=== PATIENT | male | born 1980 | race Hispanic/Latino ===

== ENCOUNTER 2023-04-22 14:06 | Emergency (ER) | payer OTHER ==
[2023-04-22] MEDS ORDERED: NA CHLORIDE 0.9% 1,000 ML ONE (14:34)
[2023-04-22] MEDS ORDERED: NA CHLORIDE 0.9% 500 ML ONE (14:34)
[2023-04-22] MEDS ORDERED: DIAZEPAM 5 MG TABLET ONE (14:55)
[2023-04-22] MEDS ORDERED: dexAMETHasone 10 MG/ML VIAL ONE (14:56)
[2023-04-22] MEDS ORDERED: ONDANSETRON 4 MG/2 ML VIAL ONE (14:56)
[2023-04-22] MEDS ORDERED: KETOROLAC 30 MG/ML INJ ONE (14:56)
[2023-04-22] MEDS ORDERED: FENTANYL CITR 100 MCG/2 ML ONE (14:56)
[2023-04-22 15:02] LABS: Protime INR 1.08
[2023-04-22 15:05] LABS: Absolute Lymphocytes (CBC) 1.5 K/uL (0.7-4.9); Lymphocytes % 34.8 % (15.3-44.8); MCV 85.6 fL (80-100); RBC Red Blood Cell Count 4.79 M/uL (4.33-5.43)
[2023-04-22 15:07] LABS: Specific Gravity 1.008 (1.005-1.030); Urine Bilirubin NEGATIVE (Negative); Urine Blood Negative (Negative); Urine Clarity Clear (Clear); Urine Color Colorless (Yellow); Urine Glucose NEGATIVE (Negative); Urine Protein NEGATIVE (Negative); Urine Urobilinogen Normal (Normal); Urine pH 6.5 (5.0-7.0)
[2023-04-22 15:18] LABS: Albumin 3.9 g/dL (3.4-5.0); Bilirubin Direct 0.1 mg/dL (0-0.2); Bilirubin Indirect, Calculated 0.4 mg/dL (0.2-0.8); Bilirubin Total 0.5 mg/dL (0.2-1.0); Potassium 4.3 mEq/L (3.5-5.1); Protein, Total 7.6 g/dL (6.4-8.2); Troponin High Sensitivity 10.5 pg/mL (<58.9)
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
--- NOTE | 2023-04-22 15:53 | EDPHYS ---
Physician Documentation [facility] Name: Vlad Shi Age: 42 yrs Sex: Male : 1980 Arrival Date: 04/22/2023 Time: 14:06 Bed 8 Private MD: ED Physician Gustavo Ro HPI: 04/22 15:43 This 42 yrs old Male presents to ER via EMS with complaints of Back Pain. milagros 15:43 The patient presents with pain that is acute, that is chronic. The symptoms are located milagros in the low back, lumbar area, left low back and right low back. Onset: The symptoms/episode began/occurred 2 day(s) ago. The pain does not radiate. Associated signs and symptoms: The patient has no apparent associated signs or symptoms. The problem was sustained playing sports, basketball. Modifying factors: The patient symptoms are alleviated by nothing, the patient symptoms are aggravated by any movement. Severity of symptoms: At their worst the symptoms were mild, moderate, in the emergency department the symptoms are unchanged. The patient has experienced similar episodes in the past, multiple times. Historical: - Allergies: 14:19 No Known Allergies; kc6 - Home Meds: 14:19 None [Active]; kc6 - PMHx: 14:19 None; kc6 - PSHx: 14:19 None; kc6 - Immunization history:: Client reports having NOT received the Covid vaccine. Flu vaccine is not up to date. - Social history:: Smoking status: Patient denies any tobacco usage or history of. - Family history:: not pertinent. ROS: 15:43 Constitutional: Negative for fever, chills, and weight loss, Eyes: Negative for injury, milagros pain, redness, and discharge, ENT: Negative for injury, pain, and discharge, Neck: Negative for injury, pain, and swelling, Cardiovascular: Negative for chest pain, palpitations, and edema, Respiratory: Negative for shortness of breath, cough, wheezing, and pleuritic chest pain, Abdomen/GI: Negative for abdominal pain, nausea, vomiting, diarrhea, and constipation, : Negative for injury, bleeding, discharge, and swelling, MS/Extremity: Negative for injury and deformity, Skin: Negative for injury, rash, and discoloration, Neuro: Negative for headache, weakness, numbness, tingling, and seizure, Psych: Negative for depression, anxiety, suicide ideation, homicidal ideation, and hallucinations, Allergy/Immunology: Negative for hives, rash, and allergies, Endocrine: Negative for neck swelling, polydipsia, polyuria, polyphagia, and marked weight changes. 15:43 Back: Positive for decreased range of motion, pain at rest, pain with movement, of the lumbar area, low back area and left low back. Exam: 15:43 Constitutional: This is a well developed, well nourished patient who is awake, alert, milagros and in no acute distress. Head/Face: Normocephalic, atraumatic. Eyes: Pupils equal round and reactive to light, extra-ocular motions intact. Lids and lashes normal. Conjunctiva and sclera are non-icteric and not injected. Cornea within normal limits. Periorbital areas with no swelling, redness, or edema. ENT: Nares patent. No nasal discharge, no septal abnormalities noted. Tympanic membranes are normal and external auditory canals are clear. Oropharynx with no redness, swelling, or masses, exudates, or evidence of obstruction, uvula midline. Mucous membranes moist. Neck: Trachea midline, no thyromegaly or masses palpated, and no cervical lymphadenopathy. Supple, full range of motion without nuchal rigidity, or vertebral point tenderness. No Meningismus. Chest/axilla: Normal chest wall appearance and motion. Nontender with no deformity. No lesions are appreciated. Cardiovascular: Regular rate and rhythm with a normal S1 and S2. No gallops, murmurs, or rubs. Normal PMI, no JVD. No pulse deficits. Respiratory: Lungs have equal breath sounds bilaterally, clear to auscultation and percussion. No rales, rhonchi or wheezes noted. No increased work of breathing, no retractions or nasal flaring. Abdomen/GI: Soft, non-tender, with normal bowel sounds. No distension or tympany. No guarding or rebound. No evidence of tenderness throughout. Male : Normal genitalia with no discharge or lesions. Skin: Warm, dry with normal turgor. Normal color with no rashes, no lesions, and no evidence of cellulitis. MS/ Extremity: Pulses equal, no cyanosis. Neurovascular intact. Full, normal range of motion. Neuro: Awake and alert, GCS 15, oriented to person, place, time, and situation. Cranial nerves II-XII grossly intact. Motor strength 5/5 in all extremities. Sensory grossly intact. Cerebellar exam normal. Normal gait. Psych: Awake, alert, with orientation to person, place and time. Behavior, mood, and affect are within normal limits. 15:43 Back: pain, that is mild, that is moderate, ROM is painful, with flexion, with extension, normal spinal alignment noted, CVA tenderness, is absent, vertebral tenderness, is not appreciated, muscle spasm, is appreciated in the left low back, left mid back, right mid back and right low back. 16:35 Abdomen/GI: Inspection: abdomen appears normal, Bowel sounds: normal, Palpation: [facility] abdomen is soft and non-tender, Liver: no appreciated palpable abnormalities, Hernia: not appreciated. 16:44 ECG was reviewed by the Attending Physician. [facility] Vital Signs: 14:14 BP 140 / 86; Pulse 68; Resp 18 S; Temp 98.1(O); Pulse Ox 100% on R/A; Weight 76.2 kg kc6 (R); Height 6 ft. 0 in. (R); Pain 10/10; 15:39 BP 126 / 76; Pulse 45; Resp 18 S; Pulse Ox 100% on R/A; Pain 3/10; kc6 14:14 Body Mass Index 22.78 (76.20 kg, 182.88 cm) kc6 14:14 Pain Scale: Adult kc6 15:39 Pain Scale: Adult kc6 MDM: 14:19 Patient medically screened. [facility] 15:45 Differential diagnosis: chronic back pain, Fatigue Fracture Osteoarthritis sprain, milagros vertebral fracture. Data reviewed: vital signs, nurses notes, lab test result(s), radiologic studies, CT scan. Consideration of Admission/Observation Escalation of care including admission/observation considered. I considered the following discharge prescriptions or medication management in the emergency department Medications were administered in the Emergency Department. See MAR. Independent interpretation of the following test(s) in the Emergency Department CT Scan: My interpretation is CT LUMBAR. 04/22 14:20 Order name: Basic Metabolic Panel; Complete Time: 15:37 [facility] 04/22 14:20 Order name: CBC with Diff; Complete Time: 15:37 [facility] 04/22 14:20 Order name: LFT's; Complete Time: 15:37 [facility] 04/22 14:20 Order name: Magnesium; Complete Time: 15:37 04/22 14:20 Order name: NT PRO-BNP; Complete Time: 15:37 04/22 14:20 Order name: PT-INR; Complete Time: 15:37 [facility] 04/22 14:20 Order name: Troponin HS; Complete Time: 15:37 [facility] 04/22 14:20 Order name: Lipase; Complete Time: 15:37 04/22 14:20 Order name: CK; Complete Time: 15:37 04/22 14:20 Order name: Urinalysis w/ reflexes 04/22 14:20 Order name: XRAY Chest (1 view) 04/22 14:44 Order name: CT Lumbar Spine Wo Con; Complete Time: 16:35 [facility] 04/22 14:20 Order name: EKG; Complete Time: 14:21 [facility] 04/22 14:20 Order name: Cardiac monitoring; Complete Time: 14:25 [facility] 04/22 14:20 Order name: EKG - Nurse/Tech; Complete Time: 14:42 04/22 14:20 Order name: IV Saline Lock; Complete Time: 14:42 04/22 14:20 Order name: Labs collected and sent; Complete Time: 14:42 04/22 14:20 Order name: O2 Per Protocol; Complete Time: 14:25 04/22 14:20 Order name: O2 Sat Monitoring; Complete Time: 14:25 04/22 16:16 Order name: Misc. Order: DC WHEN OFFICAL CT LUMBAR NEG; Complete Time: 16:31 milagros EC:44 Rate is 44 beats/min. Rhythm is regular. QRS Adel is Normal. ME interval is normal. QRS milagros interval is normal. QT interval is normal. No Q waves. T waves are Normal. Clinical impression: Brugada syndrome, Sinus bradycardia, and No evidence of ischemia. Interpreted by me. Reviewed by me. Administered Medications: 14:42 Drug: NS 0.9% IV 500 ml Route: IV; Rate: bolus; Site: left antecubital; kc6 15:39 Follow up: Response: No adverse reaction; IV Status: Completed infusion; IV Intake: kc6 500ml 14:42 Drug: NS 0.9% IV 1000 ml Route: IV; Rate: 125 ml/hr; Site: left antecubital; kc6 17:02 Follow up: Response: No adverse reaction; IV Status: Order to discontinue infusion kc6 14:55 Drug: Decadron - Dexamethasone IVP 10 mg Route: IVP; Site: left antecubital; kc6 15:39 Follow up: Response: No adverse reaction kc6 14:55 Drug: fentaNYL (PF) IVP 50 mcg Route: IVP; Site: left antecubital; kc6 15:39 Follow up: Response: No adverse reaction; Pain is decreased; RASS: Alert and Calm (0) kc6 14:56 Drug: Ondansetron IVP 4 mg Route: IVP; Site: left antecubital; kc6 15:40 Follow up: Response: No adverse reaction kc6 14:56 Drug: Ketorolac IVP 30 mg Route: IVP; Site: left antecubital; kc6 15:40 Follow up: Response: No adverse reaction; Pain is decreased kc6 14:56 Drug: Diazepam PO 10 mg Route: PO; kc6 15:40 Follow up: Response: No adverse reaction; Pain is decreased; Anxiety decreased; RASS: [facility] Alert and Calm (0) Disposition Summary: 04/22/23 15:53 Discharge Ordered Location: Home milagros Problem: new milagros Symptoms: have improved milagros Condition: Stable milagros Diagnosis - Low back pain milagros - Other injury of muscle, fascia and tendon of lower back milagros Followup: milagros - With: Private Physician - When: 2 - 3 days - Reason: Recheck today's complaints, Continuance of care, Re-evaluation by your physician Discharge Instructions: - Discharge Summary Sheet milagros - Acute Back Pain, Adult milagros - Musculoskeletal Pain milagros Forms: - Medication Reconciliation Form [facility] - Thank You Letter milagros - Antibiotic Education milagros - Prescription Opioid Use milagros Prescriptions: - Ibuprofen 600 mg Oral Tablet - take 1 tablet by ORAL route every 6 hours As needed take with food; 30 tablet; [facility] Refills: 0, Product Selection Permitted - Cyclobenzaprine 5 mg Oral Tablet - take 1 tablet by ORAL route 3 times per day As needed; 15 tablet; Refills: 0, milagros Product Selection Permitted Signatures: Dispatcher [employer] Gustavo Nova MD MD cha Campbell, Kaitlyn RN RN kc6
--- NOTE | 2023-04-22 16:31 | RAD REPORT ---
EXAM DESCRIPTION: CT - Spine Lumbar Wo Con - 04/22/2023 3:13 pm CLINICAL HISTORY: PAIN COMPARISON: No comparisons TECHNIQUE: Axial noncontrast CT imaging of the lumbar spine was performed with coronal and sagittal re-formatted images. All CT scans are performed using dose optimization technique as appropriate and may include automated exposure control or mA/KV adjustment according to patient size. FINDINGS: No acute lumbar spine fracture seen. No aggressive marrow pattern or malalignment. Paraspinal tissues are normal in thickness. No paraspinal abscess or hematoma seen. No significant degenerative changes. Incidentally noted trace free pelvic fluid. Intervertebral disc disease assessment is inherently limited by CT. Within these limitations, no high -grade canal stenosis suspected. IMPRESSION: No acute osseous abnormality of the lumbar spine. If there is concern for radiculopathy, additional evaluation by lumbar spine MRI would provide improved sensitivity. Trace free pelvic fluid, abnormal finding which is nonspecific.
--- NOTE | 2023-04-22 16:44 | RAD REPORT ---
EXAM DESCRIPTION: [place] Single View04/22/2023 3:25 pm CLINICAL HISTORY: COUGH COMPARISON: No comparisons TECHNIQUE: Portable AP view of the chest. FINDINGS: The lungs are clear. No pneumothorax or effusion. The cardiomediastinal contours are unre markable. IMPRESSION: No acute cardiopulmonary process.
[2023-04-22 17:42] VITALS: TEMP 98.1; O2SAT 100
[2023-04-22 17:48] VITALS: BP 126/76
--- NOTE | 2023-04-24 19:15 | EKG ---
Test Date: 2023-04-22 Test Time: 14:30:59 Nutrition Coordinator: MURTAZA MEASUREMENT RESULTS: Intervals: Rate: 44 DE: 208 QRSD: 82 QT: 438 QTc: 374 [place]: P: 60 DE: 208 QRS: -65 T: -3 INTERPRETIVE STATEMENTS: Marked sinus bradycardia Left axis deviation Abnormal ECG No previous ECG available for comparison Electronically Signed On 04-24-23 19:11:18 CDT by Macho Asif
== END 2023-04-22 17:04 | disposition home or self-care (01) ==
LOC: ER 14:06
DX: S39.82XA Other specified injuries of lower back, initial encounter (principal)
CPT/HCPCS: 96361; 93005; 85025; 80048; 36415; 83735; 82550; 85610; 80076; 81003; 84484; 83690; 83880; 72131; 71045; 96375; 96374; 99285; J3010; J1100; J2405; J7030; J7040